=== PATIENT | female | born 1995 | race African-American/Black ===

== ENCOUNTER 2018-03-17 14:30 | Inpatient (IN) | payer MEDICAID ==
[~2018-03-17] VITALS: Ht 160 cm; Wt 125.0 kg
[2018-03-17] VITALS (8 sets, daily range): BP systolic 122–239; BP diastolic 68–82; PULSE 85–200; TEMP 97.2–97.7
[2018-03-17 20:15] LABS: BASO % 0.2 % (0.0-2.0); EOS % 0.2 % (0-4.0); GRAN # 8.6 (1.4-6.5); HEMOGLOBIN 10.7 g/dl (12.5-16.0); LYMPH # 2.8 (1.2-3.4); LYMPH % 22.8 % (20.0-51.0); MEAN CELL VOLUME 78 fl (80.0-100.0); MEAN CORPUSCULAR HEMOGLOBIN 25 pg (27.0-31.0); MEAN CORPUSCULAR HGB CONC 32 g/dl (33.0-37.0); MONO # 0.8 (0.1-0.6); MONO % 6.4 % (1.7-9.3); PLATELET COUNT 510 K/mm3 (130-400); RED BLOOD COUNT 4.28 M/mm3 (4.10-5.30); REDCELL DISTRIBUTION WIDTH-CV 17.2 % (11.5-14.5)
[2018-03-17 20:17] LABS: HEMATOCRIT 33.4 % (37.0-47.0)
[2018-03-18] VITALS (59 sets, daily range): BP systolic 103–171; BP diastolic 56–110; PULSE 77–123; TEMP 97.4–98.8
[2018-03-19 02:45] VITALS: BP 137/95; PULSE 106; TEMP 98.1
[2018-03-19 07:30] VITALS: BP 126/68; PULSE 91; TEMP 98.2
[2018-03-19 08:05] LABS: BASO % 0.3 % (0.0-2.0); EOS % 0.3 % (0-4.0); GRAN # 10.3 (1.4-6.5); GRAN % 69.7 % (42.2-75.2); LYMPH # 3.4 (1.2-3.4); LYMPH % 23.2 % (20.0-51.0); MEAN CELL VOLUME 78 fl (80.0-100.0); MEAN CORPUSCULAR HEMOGLOBIN 25 pg (27.0-31.0); MEAN CORPUSCULAR HGB CONC 32 g/dl (33.0-37.0); MEAN PLATELET VOLUME 10.3 fl (7.4-10.4); MONO # 0.9 (0.1-0.6); PLATELET COUNT 424 K/mm3 (130-400); RED BLOOD COUNT 3.99 M/mm3 (4.10-5.30); REDCELL DISTRIBUTION WIDTH-CV 17.1 % (11.5-14.5)
[2018-03-19 08:06] LABS: HEMATOCRIT 31.3 % (37.0-47.0)
[2018-03-19 12:05] VITALS: BP 129/84; PULSE 97; TEMP 97.6
[2018-03-19 15:43] VITALS: BP 125/60; PULSE 92; TEMP 98.1
[2018-03-19 19:30] VITALS: BP 128/89; PULSE 97; TEMP 97.8
[2018-03-20 07:37] VITALS: BP 125/89; PULSE 95; TEMP 98
[2018-03-20] MEDS ORDERED: PERCOCET 325 MG1 TA2 PO (09:37)
[2018-03-20] MEDS ORDERED: IBU600 MG PO (09:37)
[2018-03-20 16:17] VITALS: BP 122/70; PULSE 102; TEMP 97.7
[2018-03-20 19:50] VITALS: BP 114/71; PULSE 99; TEMP 98.2
[2018-03-21 07:30] VITALS: BP 142/90; PULSE 94; TEMP 98.5
[2018-03-21 08:30] VITALS: BP 139/84; PULSE 95
== END 2018-03-21 13:20 | disposition home or self-care (01) | DRG 765 ==
LOC: LDR 14:30 → OB 03-18 20:00
PROVIDERS: Obstetrics & Gynecology
PROC: 3E0P7VZ Introduction of Hormone into Female Reproductive, Via Natural or Artificial Opening (ICD-10-PCS; 2018-03-17)
PROC: 3E033VJ Introduction of Other Hormone into Peripheral Vein, Percutaneous Approach (ICD-10-PCS; 2018-03-17)
PROC: 10907ZC Drainage of Amniotic Fluid, Therapeutic from Products of Conception, Via Natural or Artificial Opening (ICD-10-PCS; 2018-03-17)
PROC: 10D00Z1 Extraction of Products of Conception, Low, Open Approach (ICD-10-PCS; principal; 2018-03-18)
DX: O62.1 Secondary uterine inertia (principal); Z68.42 Body mass index [BMI] 45.0-49.9, adult; Z3A.39 39 weeks gestation of pregnancy; Z37.0 Single live birth; O13.4 Gestational [pregnancy-induced] hypertension without significant proteinuria, complicating childbirth; O99.214 Obesity complicating childbirth; O99.344 Other mental disorders complicating childbirth; F41.8 Other specified anxiety disorders; D47.3 Essential (hemorrhagic) thrombocythemia; E28.2 Polycystic ovarian syndrome
CPT/HCPCS: J0690; J1885; J2270; J2370; J2405; J2590; J7120

== ENCOUNTER → 2018-03-24 | Outpatient (CLI) | payer MEDICAID ==
[~2018-03-24] MED LIST: IBU600 MG PO; PERCOCET 325 MG1 TA2 PO
== END ==
LOC: OLC 14:00
DX: Z39.1 Encounter for care and examination of lactating mother (principal); Z71.89 Other specified counseling

== ENCOUNTER → 2018-11-13 | Outpatient (CLI) | payer MEDICAID ==
[2018-11-13 20:01] LABS: THYROID STIMULATING HORMONE 1.65 uIU/mL (0.465-4.680)
== END ==
LOC: ZCOL.LAB 18:34
PROVIDERS: Family Medicine
DX: F32.9 Major depressive disorder, single episode, unspecified (principal); F41.9 Anxiety disorder, unspecified

== ENCOUNTER 2021-06-14 22:52 | Observation (INO) | payer BC ==
[~2021-06-14] VITALS: Ht 157.5 cm; Wt 109.1 kg
[2021-06-14] MEDS ORDERED: PROTONIX 40MG T40 MG PO (23:19)
[2021-06-14] MEDS ORDERED: VYVANSE30 MG PO (23:19)
[2021-06-14] MEDS ORDERED: LO LOESTRIN FE1 TAB PO (23:20)
[2021-06-14] MEDS ORDERED: DEPAKOTE ER 25250 MG PO (23:20)
[2021-06-14 23:31] LABS: COLLECTION METHOD CLEAN CATCH
[2021-06-14 23:37] LABS: MUCOUS Present /lpf; PH 6 (5-8); SQUAMOUS EPITHELIAL 0-2 /hpf; URINE APPEARANCE Hazy; URINE BACTERIA None Seen /hpf; URINE BILIRUBIN Negative (NEGATIVE); URINE BLOOD 2+ (NEGATIVE); URINE COLOR Yellow; URINE GLUCOSE Negative (NEGATIVE); URINE KETONE Negative (NEGATIVE); URINE LEUKOCYTE ESTERASE Negative (NEGATIVE); URINE NITRATE Negative (NEGATIVE); URINE PROTEIN(semi-quant) Negative (NEGATIVE); URINE UROBILINOGEN Negative (NEGATIVE)
[2021-06-15] VITALS (11 sets, daily range): BP systolic 90–125; BP diastolic 55–83; PULSE 68–83; TEMP 97.7–98.6
[2021-06-15 00:11] LABS: BASO # 0.1 (0.0-0.2); BASO % 0.6 % (0.0-2.0); EOS # 0.1 (0.0-0.7); EOS % 0.6 % (0-4.0); GRAN # 4.2 (1.4-6.5); HEMATOCRIT 39.1 % (37.0-47.0); HEMOGLOBIN 12.3 g/dl (12.5-16.0); LYMPH # 3.5 (1.2-3.4); LYMPH % 40.2 % (20.0-51.0); MEAN CELL VOLUME 92 fl (80.0-100.0); MEAN CORPUSCULAR HEMOGLOBIN 29 pg (27.0-31.0); MEAN CORPUSCULAR HGB CONC 32 g/dl (33.0-37.0); MEAN PLATELET VOLUME 10.5 fl (7.4-10.4); MONO # 0.8 (0.1-0.6); MONO % 8.8 % (1.7-9.3); PLATELET COUNT 385 K/mm3 (130-400); RED BLOOD COUNT 4.27 M/mm3 (4.10-5.30); REDCELL DISTRIBUTION WIDTH-CV 14.4 % (11.5-14.5)
[2021-06-15 00:33] LABS: ALBUMIN 4.1 gm/dL (3.5-5.0); BILIRUBIN,TOTAL 0.3 mg/dL (0.0-1.0); C-REACTIVE PROTEIN 0.9 mg/dL (0.0-0.9); CALCIUM 9.2 mg/dL (8.4-10.2); CREATININE, serum 0.61 (0.52-1.25); POTASSIUM 3.8 mmol/L (3.4-5.0); TOTAL PROTEIN 7.3 gm/dL (6.4-8.2)
--- NOTE | 2021-06-15 03:50 | NUR ---
Pt came ABD pain.AOX4, independent. Currently NPO. Vss. Pain rated 0/10. Will continue to monitor.
--- NOTE | 2021-06-15 07:00 | NUR ---
Dr Torres here to see patient.
--- NOTE | 2021-06-15 09:30 | NUR ---
Patient alert and oriented, answers questions appropriately. See assessment. Abdomen soft, non tender, non distended. Bowel sounds active x4 quads. +Flatus. No c/o at this time.
--- NOTE | 2021-06-15 10:50 | NUR ---
Initial visit; Patient thanked [employer] for looking in on her and offering God's blessings and keeping her in [employer]'s prayers.
--- NOTE | 2021-06-15 11:10 | NUR ---
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 Patient states she lives with her daughter, works and has been independent with her daily activities. Patient's provider is a PA at the [facility]. Patient stated she has [employer] insurance, however, does not think that she has [employer] any longer. Patient states she can afford her medications. Patient plans to return home.
--- NOTE | 2021-06-15 12:50 | NUR ---
Patient to surgery with surgical staff at 1240.
[2021-06-15] MEDS ORDERED: NORCO 325 MG-51 TAB PO (16:48)
--- NOTE | 2021-06-15 17:54 | NUR ---
Discharge instructions reviewed with patient and sister, verbalized understanding. Discharged via wheelchair to auto/home with sister at 1750.
== END 2021-06-15 17:50 | disposition home or self-care (01) ==
LOC: COL.ER 22:52 → SURG 06-15 02:50
PROVIDERS: Nurse Practitioner Primary Care; ADMIT Surgery
DX: K80.12 Calculus of gallbladder with acute and chronic cholecystitis without obstruction (principal); F31.9 Bipolar disorder, unspecified; E66.01 Morbid (severe) obesity due to excess calories; Z79.899 Other long term (current) drug therapy
CPT/HCPCS: G0378; J0330; J1885; J2250; J2270; J2405; J2543; J2704; J3010; J7030; J7120; Q9967